=== PATIENT | male | born 1955 | race Caucasian/White ===

== ENCOUNTER 2017-01-21 22:56 | Emergency (ER) | payer OTHER ==
[2017-01-21 23:21] LABS: ABSOLUTE NEUTROPHIL COUNT 4.3 K/mm3 (1.8-7.7); BASO # 0.1 K/mm3 (0.0-0.2); BASO % 0.5 % (0.2-1.0); EOS # 0.3 (0.0-0.5); EOS % 2.2 % (0.9-2.9); HEMATOCRIT 41.8 % (32.0-52.0); HEMOGLOBIN 13.6 gm/l (14.0-18.0); IMM NEUT% 0.1 % (0-1); LYMPH # 6.2 (1.0-4.8); LYMPH % 51.9 % (15-45); MEAN CELL VOLUME 89.3 fl (80.0-94.0); MEAN CORPUSCULAR HEMOGLOBIN 29.1 pg (27.0-31.0); MEAN CORPUSCULAR HGB CONC 32.5 g/dl (33.0-37.0); MEAN PLATELET VOLUME 9.7 fl (7.4-10.4); MONO # 1.1 (0.0-0.8); MONO % 9.5 % (4-12); NEUT % 35.8 % (43-75); PLATELET COUNT 193 K/mm3 (130-400)
[2017-01-21 23:36] LABS: ALB/GLOB RATIO 1.7 (>1.0); CALCIUM 8.9 mg/dL (8.6-10.3)
[2017-01-21] MEDS ORDERED: ASPIRIN CHEWTAB 81 MG TABLET ONE (23:40)
[2017-01-21 23:42] LABS: TROPONIN I < 0.01 ng/ml (0.0-0.06)
[2017-01-21 23:46] LABS: CKMB ISOENZYME 4.6 ng/ml (0.6-6.3)
--- NOTE | 2017-01-22 08:10 | RAD ---
EXAMINATION:CHEST - 2 VIEWS CLINICAL INDICATION: Cough COMPARISON: Exam 09/25/2016 FINDINGS: The cardiomediastinal silhouette is within normal limits. There is no adenopathy identified. There is no pleural effusion. Linear basilar opacity in the left lower lung zone compatible with chronic atelectasis/scarring slightly more pronounced in comparison to the prior study. No lobar pneumonia or consolidation is identified. The osseous structures are unremarkable for age. IMPRESSION: Left basilar atelectasis/parenchymal scarring slightly more pronounced in comparison to the prior exam of 09/25/2016. No acute infiltrate or effusion is identified.
== END 2017-01-22 01:54 | disposition home or self-care (01) ==
LOC: ED 22:56
DX: R07.89 Other chest pain (principal); I10 Essential (primary) hypertension; I25.2 Old myocardial infarction; E78.5 Hyperlipidemia, unspecified; E78.00 Pure hypercholesterolemia, unspecified; J44.9 Chronic obstructive pulmonary disease, unspecified; Z86.718 Personal history of other venous thrombosis and embolism; Z86.711 Personal history of pulmonary embolism; Z87.891 Personal history of nicotine dependence; Z95.1 Presence of aortocoronary bypass graft; Z79.82 Long term (current) use of aspirin; Z79.899 Other long term (current) drug therapy; Z88.8 Allergy status to other drugs, medicaments and biological substances
CPT/HCPCS: 85025; 82553; 80053; 84484 ×2; 71020; 99284 ×2; 93005; A9270